=== PATIENT | female | born 1935 | race Caucasian/White ===

== ENCOUNTER → 2016-03-15 | Outpatient (CLI) | payer MEDICARE, OTHER ==
[~2016-03-15] MED LIST: ACET250T3 PO; BESIVANCE RIGHT EYE; ERYT.5%O RIGHT EYE; FISHOIL PO; GARL500T PO; GLUCLIQ OR; LISI10TA PO; LOTE0.5O RIGHT EYE; METO50TA OR; TAB-TAB PO; TIMO0.5S29 RIGHT EYE; VITA400C70 PO; VITA500T83 OR; WAL-10TA2 PO; [UNRECOGNIZED DRUG - CODE] OD; [UNRECOGNIZED DRUG - CODE] PO
[2016-03-15 10:03] LABS: AUTOMATED NEUTROPHIL # 3.6 TH/MM3 (1.8-7.7); BASOPHIL # 0.1 TH/MM3 (0-0.2); BASOPHIL % 0.9 % (0.0-2.0); EOSINOPHIL # 0.2 TH/MM3 (0-0.4); EOSINOPHIL % 2.8 % (0.0-4.0); HEMO FLAGS DIFF FINAL; LYMPH % 28.3 % (9.0-44.0); LYMPHOCYTE # 1.7 TH/MM3 (1.0-4.8); MEAN CELL VOLUME 88.2 FL (80.0-100.0); MEAN CORPUSCULAR HGB CONC 32.9 % (32.0-36.0); MONO % 8.4 % (0.0-8.0); NEUT % 59.6 % (16.0-70.0); PLATELET COUNT 224 TH/MM3 (150-450); RED BLOOD COUNT 4.54 MIL/MM3 (4.00-5.30); RED CELL DISTRIBUTION WIDTH 13.4 % (11.6-17.2); WHITE BLOOD COUNT 6.1 TH/MM3 (4.0-11.0)
[2016-03-15 12:53] LABS: APTT (PATIENT) 28.2 SEC (24.3-30.1); PROTHROMBIN TIME - PATIENT 10.5 SEC (9.8-11.6)
[2016-03-15 12:54] LABS: ANION GAP 7 MEQ/L (5-15); BICARBONATE 26.8 MEQ/L (21.0-32.0); BLOOD UREA NITROGEN 18 MG/DL (7-18); CHLORIDE 106 MEQ/L (98-107); SODIUM (NA) 140 MEQ/L (136-145)
[2016-03-15 12:59] LABS: ALKALINE PHOSPHATASE 89 U/L (45-117); ALT (GPT) 20 U/L (10-53); AST (GOT) 15 U/L (15-37); GLOMERULAR FILTRATION RATE 56 ML/MIN (>89); TOTAL BILIRUBIN ADULT 0.4 MG/DL (0.2-1.0)
[2016-03-15 13:06] LABS: WESTERGREN SEDIMENTATION RATE 10 mm/hr (0-30)
[2016-03-15 13:10] LABS: BLOOD, URINE NEG (NEG); COMMENT (UR) CULT NOT INDICATED; CULTURE IF INDICATED CULT NOT INDICATED; GLUCOSE,URINE NEG (NEG); KETONE, URINE NEG (NEG); MUCUS URINE FEW /lpf (OCC); NITRITE,URINE NEG (NEG); PH, URINE 5.5 (5.0-8.5); SQUAMOUS EPITHELIAL CELL URINE <1 /hpf (0-5); URINE COLOR YELLOW (YELLW/STRAW)
== END ==
LOC: OLAB 09:28
PROVIDERS: ATTEND Orthopaedic Surgery Sports Medicine
DX: M25.50 Pain in unspecified joint (principal); Z79.01 Long term (current) use of anticoagulants; Z96.60 Presence of unspecified orthopedic joint implant
CPT/HCPCS: 36415; 80053; 81001; 85025; 85610; 85652; 85730; 86140